=== PATIENT | male | born 1970 | race Caucasian/White ===

== ENCOUNTER 2019-08-23 23:38 | Observation (INO) | payer OTHER, SELFPAY ==
--- NOTE | ~2019-08-23 | XR_ITS ---
EXAMINATION: XR chest 2V DATE: 08/24/2019 00:29 INDICATION: Upper chest pain and shortness of breath TECHNIQUE: PA and lateral views of the chest were obtained. COMPARISON: Chest radiograph and CT dated 04/21/2011 FINDINGS: Unchanged minimal elevation of the left hemidiaphragm. No focal airspace opacities, pulmonary edema, pleural effusion or pneumothorax. The cardiomediastinal silhouette is normal. Mild thoracic spondylos is with chronic mild anterior wedging of a couple lower thoracic vertebral bodies. IMPRESSION: 1. No acute cardiopulmonary disease. Reviewed, dictated and finalized at location A.
[2019-08-23 23:37] VITALS: BP 161/90; PULSE 60; RESP 14; TEMP 37.5; O2SAT 97
[2019-08-23 23:45] VITALS: O2SAT 95
--- NOTE | 2019-08-23 23:47 | ECG_ITS ---
Measurements Intervals [place] Rate: 56 P: 16 MI: 164 QRS: 25 QRSD: 88 T: 35 QT: 404 QTc: 392 Interpretive Statements SINUS BRADYCARDIA BORDERLINE ECG Electronically Signed On 08-24-2019 12:03:22 CDT by Khoa Elaine D.O.
[2019-08-23 23:49] VITALS: PULSE 56; RESP 12; O2SAT 93
[2019-08-24] VITALS (22 sets, daily range): BP systolic 114–159; BP diastolic 57–105; PULSE 47–71; RESP 12–22; TEMP 36.3–36.7; O2SAT 92–98
[2019-08-24 00:44] LABS: Basophils Absolute Auto 0.1 K/mm3 (0.0-0.1); Basophils Percent Auto 0.4 % (0.2-1.2); Eosinophils Absolute Auto 0.1 K/mm3 (0-0.3); Eosinophils Percent Auto 0.7 % (0-4.4); Hematocrit 42.2 % (42.0-52.0); Hemoglobin 14.5 g/dL (14.0-18.0); Immature Granulocyte Absolute 0.04 K/mm3 (0.00-0.031); Immature Granulocyte Percent A 0.4 % (0-0.5); Lymphocytes Absolute Auto 1.99 K/mm3 (0.9-3.2); Lymphocytes Percent Auto 17.5 % (18.3-44.2); Mean Corpuscular HGB Conc 34.4 g/dl (32-36); Mean Corpuscular Hemoglobin 31.2 pg (26-34); Mean Corpuscular Volume 90.8 fl (80-100); Mean Platelet Volume 9.4 fl (7.4-10.4); Monocytes Absolute Auto 0.9 K/mm3 (0.1-0.6); Monocytes Percent Auto 7.7 % (2.6-8.5); Neutrophils Absolute Auto 8.4 K/mm3 (1.3-6.7); Neutrophils Percent Auto 73.3 % (45.5-73.1); Platelet Count Result 257 k/mm3 (150-375); Red Blood Count 4.65 M/mm3 (4.6-6.20); Red Cell Distribution Width 14.4 % (11.5-14.5); White Blood Count 11.4 K/mm3 (4.5-10.0)
[2019-08-24 00:45] LABS: Prothrombin Time 13.2 Seconds (11.1-14.7)
[2019-08-24 00:46] LABS: Partial Thromboplastin Time 27.8 SECONDS (22.3-36.8)
[2019-08-24 01:04] LABS: Blood Urea Nitrogen 17 mg/dL (9-20); Calcium 9.6 mg/dL (8.4-10.2); Carbon Dioxide 26 mmol/L (22-30); Chloride 105 mmol/L (98-107); Estimated CRCL calculation 151 ml/min; Estimated Glomerular Filt Rate > 60; Glucose 104 mg/dL (75-110); Potassium 3.7 mmol/L (3.4-5.0); Sodium 139 mmol/L (137-145)
[2019-08-24 01:16] LABS: Troponin I 0.018 ng/mL (0.000-0.034)
--- NOTE | 2019-08-24 01:32 | ED.CHESTPAIN ---
HPI - Chest Pain General Chief Complaint: Chest Pain Stated Complaint: CP Time Seen by Provider: 08/24/19 00:23 Source: patient Mode of arrival: ambulatory Limitations: no limitations History of Present Illness HPI narrative: This patient is a 49 year old male with history of Hypertension, diabetes who presents for evaluation of misternal chest pressure. Patient states that he had a dental procedure performed yesterday afternoon. He states after he received a lidocaine injection developed dizziness and chest pressure and sensation of adrenaline . He states he continue to have that feeling. His symptoms have not resolved and he noticed that his blood pressure was elevated so he came to ER for evaluation. He denies history of angina. He was given aspirin 325 mg and nitroglycerin by EMS. Her reports his pain improved with nitroglycerin. PAtient also reports history of migraine headaches and he has one now. complaint: chest heaviness Timing of current episode: episodic and constant Prior episodes: No Onset: during rest Pain location: substernal Pain scale (0-10): 6 Quality: heaviness Exacerbating factors: exertion Associated symptoms: dyspnea Treatment prior to arrival: aspirin and nitroglycerin Related Data Home Medications Medication Instructions Recorded Confirmed zolmitriptan 5 mg tablet See Rx Instructions PO .COMPLEX 05/09/19 08/24/19 amoxicillin 875 mg PO Q12H 08/24/19 08/24/19 bupropion HCl [Wellbutrin SR] 100 mg PO Q12H 08/24/19 08/24/19 hydrocodone-acetaminophen 1 - 2 tablet PO Q6H PRN 08/24/19 08/24/19 Allergies Allergy/AdvReac Type Severity Reaction Status Date / Time No Known Allergies Allergy Unknown Verified 08/23/19 23:48 Review of Systems Review of Systems: All systems reviewed & are unremarkable except as noted in HPI and below Cardiovascular: Cardiovascular: Reports chest pain, Denies rapid heart rate and Denies radiating jaw, neck or arm pain Respiratory: Respiratory: Denies cough and Denies dyspnea Gastrointestinal: Gastrointestinal: Denies abdominal pain, Denies nausea and Denies vomiting Neurologic: Reports headache(s) PMFSH Past Medical History Medical History (Updated 08/24/19 @ 08:41 by Bruce Domínguez MD) Anxiety (~2018) Benign essential HTN BMI 40.0-44.9, adult Controlled diabetes mellitus Depression Migraine with aura CASANDRA (obstructive sleep apnea) Surgical History Surgical History (Updated 08/24/19 @ 01:33 by Fay Grant MD) History of elbow surgery Family History Family History (Updated 08/24/19 @ 04:04 by Brenda Sweet RN) Mother Family history of sleep apnea Family history of alcoholism Father Family history of heart disease in male family member before age 55, Onset Age: 50 Cerebrovascular accident Grandparent Family history of lung cancer Sibling Family history of alcoholism Other Family history of gastrointestinal disorder Social History Social History Smoking status: Never smoker Alcohol intake: never Substance use: never Substance use type: does not use Living arrangements: with family Spiritual care concerns: No Exam Narrative: Exam Narrative: GENERAL: Well-appearing, well-nourished, and in no acute distress. HEAD: Normocephalic, atraumatic EYES: PERRLA and EOMI, conjunctiva clear without discharge EARS: TM's clear bilaterally without erythema or dullness NOSE: Nares clear, no rhinorrhea or epistaxis THROAT:Mucous membranes moist, Oropharynx normal without erythema, exudate, peritonsillar swelling or fluctuance NECK: Supple, without lymphadenopathy or mass RESPIRATORY: No respiratory distress, Airway patent, Respirations non-labored, Clear to auscultation without rales, rhonchi or wheeze HEART: Regular rate and rhythm. No murmur heard. Normal peripheral pulses. ABDOMEN: Soft, nontender, nondistended, normal active bowel sounds. No masses. No rebound or guarding, No organomegaly. EXTREMITIES:
[2019-08-24] MEDS: NITROGLYCERIN OINTMENT 1 INCH DOSE TRANSDERM ×2 (02:07→05:54)
[2019-08-24] MEDS: METOCLOPRAMIDE HCL INJ 10 MG/2 ML VIAL IV PUSH (02:08)
[2019-08-24] MEDS: diphenhydrAMINE HCl INJ 50 MG/ML VIAL 25 MG IV PUSH (02:08)
[2019-08-24 03:30] LABS: Troponin I 0.017 ng/mL (0.000-0.034)
--- NOTE | 2019-08-24 05:45 | ECG_ITS ---
Measurements Intervals [place] Rate: 52 P: 12 MO: 151 QRS: 27 QRSD: 93 T: 44 QT: 449 QTc: 418 Interpretive Statements SINUS BRADYCARDIA BORDERLINE ECG Electronically Signed On 08-24-2019 6:51:05 CDT by Khoa Elaine D.O.
[2019-08-24 06:29] LABS: Troponin I < 0.012 ng/mL (0.000-0.034)
--- NOTE | 2019-08-24 08:25 | PC.NURSE ---
DR. WALLS HERE TO SEE PT.
--- NOTE | 2019-08-24 08:35 | PM.IMHP ---
H&P: HPI History of Present Illness Chief complaint: chest pain Narrative: Giovanni Murray is a 49 year old male with h/o anxiety,CASANDRA on CPAP,HTN and DM both improved and came of medicine after had lost weight who presented with chest pain He had root canal procedure around 3:00 pm yesterday and right after injecting lidocaine he had extreme pain in the tooth then became diaphoretic, shaky and nauseated. Later he developed chest tightness. Procedure was aborted and he went home took Abx and hydrocodone but pain never went away and prevented him from going to sleep so he decided to seek medical attention. In ER received Nitro with only mild relive of pain then later had IV medicine that resolved the pain. He feels much better this morning and the pain has resolved EKG shows sinus bradycardia with no ischemic changes. Trops negative X3 Never smoker. Never had prior cardiac history or cardiac work up. Father had AK in his 60s. Review of Systems Review of Systems: All systems reviewed & are unremarkable except as noted in HPI and below Constitutional: Constitutional: Denies fatigue and Denies headache(s) Eyes: Eyes: Denies blurry vision ENT: Reports Normal hearing present and Denies headache(s) Cardiovascular: Cardiovascular: Denies chest pain, Denies diaphoresis, Denies pedal edema, Denies leg edema, Denies lightheadedness, Denies palpitations and Denies dyspnea Respiratory: Respiratory: Denies cough and Denies dyspnea Gastrointestinal: Gastrointestinal: Denies abdominal pain Musculoskeletal: Musculoskeletal: Denies back pain Neurologic: Reports Normal hearing present and Denies headache(s) Psychiatric: Psychiatric: Denies anxiety Endocrine: Endocrine: Denies fatigue and Denies palpitations [facility] Past Medical History Medical History (Updated 08/24/19 @ 08:41 by Bruce Domínguez MD) Anxiety (~2018) Benign essential HTN BMI 40.0-44.9, adult Controlled diabetes mellitus Depression Migraine with aura CASANDRA (obstructive sleep apnea) Surgical History Surgical History (Updated 08/24/19 @ 01:33 by Fay Grant MD) History of elbow surgery Family History Family History (Updated 08/24/19 @ 04:04 by Brenda Sweet RN) Mother Family history of sleep apnea Family history of alcoholism Father Family history of heart disease in male family member before age 55, Onset Age: 50 Cerebrovascular accident Grandparent Family history of lung cancer Sibling Family history of alcoholism Other Family history of gastrointestinal disorder Social History Social History Smoking status: Never smoker Alcohol intake: never Substance use: never Substance use type: does not use Living arrangements: with family Spiritual care concerns: No Meds Home Medications and Allergies Home Medications Medication Instructions Recorded Confirmed Type zolmitriptan 5 mg tablet See Rx Instructions PO .COMPLEX 05/09/19 08/24/19 History escitalopram oxalate 20 mg tablet 30 mg PO DAILY 90 Days #135 tablet 06/06/19 08/24/19 Rx amoxicillin 875 mg PO Q12H 08/24/19 08/24/19 History bupropion HCl [Wellbutrin SR] 100 mg PO Q12H 08/24/19 08/24/19 History hydrocodone-acetaminophen 1 - 2 tablet PO Q6H PRN 08/24/19 08/24/19 History Allergies Allergy/AdvReac Type Severity Reaction Status Date / Time No Known Allergies Allergy Unknown Verified 08/23/19 23:48 Vital Signs Vital Signs - 24 hr 08/23/19 23:37 08/23/19 23:45 08/23/19 23:49 Temperature 37.5 C Pulse Rate 60 56 L Respiratory Rate 14 12 Blood Pressure 161/90 H Pulse Oximetry 97 95 93 08/24/19 00:00 08/24/19 00:01 08/24/19 00:15 Temperature Pulse Rate 55 L 57 L 54 L Respiratory Rate 18 Blood Pressure 159/101 H Pulse Oximetry 95 93 96 08/24/19 00:27 08/24/19 00:30 08/24/19 00:31 Temperature Pulse Rate 55 L 55 L 53 L Respiratory Rate 17 13 Blood Pressure 149/93 H 145/90 H Pulse Oximetry 92 94 95 08/24/19 00:45 07
--- NOTE | 2019-08-24 08:46 | PM.DS ---
DS: Discharge Diagnosis Discharge Diagnosis (1) Chest pain: Code(s): R07.9 - Chest pain, unspecified Status: Acute Assessment and Plan: 49 y/o with CASANDRA, HTN/DM off medicine since lost weight who presented with chest pain and diaphoresis provoked by dental procedure It appears he may have had vasovagal reaction provoked by pain. troponin X3 Negative and EKG shows no ischemic changes He is chest pain free now Will discharge patient and arrange for outpatient stress echocardiogram Discussed plan with patient and he is agreeable with outpatient work up (2) CASANDRA (obstructive sleep apnea): Code(s): G47.33 - Obstructive sleep apnea (adult) (pediatric) Status: Chronic Assessment and Plan: on CPAP (3) Controlled diabetes mellitus: Code(s): E11.9 - Type 2 diabetes mellitus without complications Status: Chronic Assessment and Plan: Diet controlled (4) Benign essential HTN: Code(s): I10 - Essential (primary) hypertension Status: Chronic Assessment and Plan: Off medications for the last year since lost weight DS: Summary Time Spent with Patient Time attestation: Total time spent providing and/or coordinating discharge services: Exam Const: General: no acute distress Eyes: Sclera: sclerae normal Neck: Neck: no JVD Carotids: no bruits Resp: Effort & Inspection: normal respiratory effort Auscultation: clear to auscultation bilaterally Cardio: Rate: regular rate and not tachycardic Rhythm: regular rhythm Heart sounds: no gallops, no murmurs and no rubs Skin: General skin exam: normal color Neuro: Cranial nerves: Yes Normal hearing present Speech: normal speech Extrem: General: normal to inspection and no edema Psych: Affect: normal affect DS: Data Data Completed and Pending Labs on day of discharge: Labs from last 24 hours 08/24/19 08/24/19 08/24/19 05:45 02:51 00:14 WBC RBC Hgb Hct MCV MCH MCHC RDW Plt Count MPV Immature Gran % (Auto) Neut % (Auto) Lymph % (Auto) [place] % (Auto) Eos % (Auto) Baso % (Auto) Lymph # (Auto) [place] # (Auto) Eos # (Auto) Baso # (Auto) Abs Immat Gran (auto) Absolute Neuts (auto) Absolute Nucleated RBC Nucleated RBC % PT INR APTT Sodium 139 Potassium 3.7 Chloride 105 Carbon Dioxide 26 BUN 17 Creatinine 0.70 Estim Creat Clear Calc 151 Estimated GFR > 60 Glucose 104 Calcium 9.6 Troponin I < 0.012 D 0.017 0.018 08/24/19 08/24/19 00:14 00:14 WBC 11.4 H RBC 4.65 Hgb 14.5 Hct 42.2 MCV 90.8 MCH 31.2 MCHC 34.4 RDW 14.4 Plt Count 257 MPV 9.4 Immature Gran % (Auto) 0.4 Neut % (Auto) 73.3 H Lymph % (Auto) 17.5 L [place] % (Auto) 7.7 Eos % (Auto) 0.7 Baso % (Auto) 0.4 Lymph # (Auto) 1.99 [place] # (Auto) 0.9 H Eos # (Auto) 0.1 Baso # (Auto) 0.1 Abs Immat Gran (auto) 0.04 H Absolute Neuts (auto) 8.4 H Absolute Nucleated RBC 0.0 Nucleated RBC % 0.0 PT 13.2 INR 1.0 APTT 27.8 Sodium Potassium Chloride Carbon Dioxide BUN Creatinine Estim Creat Clear Calc Estimated GFR Glucose Calcium Troponin I Discharge Plan Discharge Attending physician on discharge: Bruce Domínguez Discharging Clinician: Bruce Domínguez Anticipated Discharge Date/Time: 08/24/19 08:47 Patient Disposition: Home, Self-Care Activity: as tolerated Diet: as tolerated and heart healthy Patient Instructions: Chest Pain (GEN), Antibiotic Form Stand Alone Forms: General Discharge Information Follow-up/Referrals: Bruce Domínguez MD [Physician] - (You will be called with appointment ) Discharge Medications: Continued zolmitriptan [Zomig] 5 mg tablet See Rx Instructions PO .COMPLEX RF: 0 hydrocodone-acetaminophen 5-325 mg Tablet 1 - 2 tablet PO Q6H PRN (Reason: Migraine Headache)
--- NOTE | 2019-08-24 10:00 | PC.NURSE ---
DR. WALLS PLANS TO DO STRESS TEST ON PATIENT AN OUTPATIENT. PT. DRESSING FOR DISCHARGE HOME. IV SITE DISCONTINUED INTACT, SITE DRESSED. NTG PASTE WIPED OFF L. UPPER ARM. REVIEWED DISCHARGE INSTRUCTIONS AND FOLLOW UP CARE WITH PT. QUESTIONS ANSWERED. VOICED UNDERSTANDING OF ALL.
--- NOTE | 2019-08-24 10:15 | PC.NURSE ---
DISCHARGED HOME, OUT AMBULATORY TO FRONT OF HOSPITAL TO AWAIT [facility]. ALL PERSONAL BELONGINGS AND DISCHARGE INSTRUCTIONS VERIFIED AND IN PT'S POSSESSION. DENIES PAIN AT THIS TIME. VOICES NO C/O.
== END 2019-08-24 10:15 | disposition home or self-care (01) ==
LOC: ANHED 08-24 03:12 → ANHCPC 08-24 03:14
PROVIDERS: Admitting Provider Internal Medicine; Emergency Provider General Practice; PCP Family Medicine; Visit Provider Internal Medicine
DX: R07.9 Chest pain, unspecified (principal); E11.9 Type 2 diabetes mellitus without complications; I10 Essential (primary) hypertension; G47.33 Obstructive sleep apnea (adult) (pediatric); F41.9 Anxiety disorder, unspecified; E66.01 Morbid (severe) obesity due to excess calories; Z68.41 Body mass index [BMI] 40.0-44.9, adult
CPT/HCPCS: 36415; 71046; 80048; 84484; 85025; 85610; 85730; 93005; 96374; 96375; 99285; A9270; G0378; J1200; J2060; J2765

== ENCOUNTER 2019-09-27 02:04 | Outpatient (CLI) | payer OTHER, SELFPAY ==
[2019-09-27 18:53] LABS: SARS-CoV-2 RNA PCR Negative
== END 2019-09-27 02:05 | disposition home or self-care (01) ==
LOC: ANHCOVIDDT 02:05
PROVIDERS: PCP Family Medicine; Visit Provider Specialist
DX: Z01.812 Encounter for preprocedural laboratory examination (principal); Z20.828 Contact with and (suspected) exposure to other viral communicable diseases
CPT/HCPCS: 87635; C9803; U0003

== ENCOUNTER 2019-09-29 05:48 | Day surgery (SDC) | payer OTHER, SELFPAY ==
[2019-09-28 15:17] VITALS: BMI 39.4
[2019-09-29] VITALS (8 sets, daily range): BP systolic 135–142; BP diastolic 74–99; PULSE 54–72; RESP 14–15; TEMP 36.5–36.6; O2SAT 95–98
[2019-09-29 11:03] LABS: Basophils Percent Auto 0.5 % (0.2-1.2); Eosinophils Absolute Auto 0.1 K/mm3 (0-0.3); Eosinophils Percent Auto 1.6 % (0-4.4); Hematocrit 42.2 % (42.0-52.0); Hemoglobin 14.6 g/dL (14.0-18.0); Immature Granulocyte Absolute 0.02 K/mm3 (0.00-0.031); Immature Granulocyte Percent A 0.3 % (0-0.5); Lymphocytes Absolute Auto 1.83 K/mm3 (0.9-3.2); Lymphocytes Percent Auto 23.8 % (18.3-44.2); Mean Corpuscular HGB Conc 34.6 g/dl (32-36); Mean Corpuscular Hemoglobin 31.3 pg (26-34); Mean Corpuscular Volume 90.6 fl (80-100); Monocytes Absolute Auto 0.6 K/mm3 (0.1-0.6); Monocytes Percent Auto 7.9 % (2.6-8.5); Neutrophils Absolute Auto 5.1 K/mm3 (1.3-6.7); Neutrophils Percent Auto 65.9 % (45.5-73.1); Platelet Count Result 213 k/mm3 (150-375); Red Blood Count 4.66 M/mm3 (4.6-6.20); Red Cell Distribution Width 13.3 % (11.5-14.5); White Blood Count 7.7 K/mm3 (4.5-10.0)
[2019-09-29 11:12] LABS: INR 1.1; Prothrombin Time 13.8 Seconds (11.1-14.7)
[2019-09-29 11:16] LABS: Anion Gap 9 mmol/L (8-16); Blood Urea Nitrogen 23 mg/dL (9-20); Calcium 9.3 mg/dL (8.4-10.2); Carbon Dioxide 26 mmol/L (22-30); Chloride 105 mmol/L (98-107); Estimated CRCL calculation 147 ml/min; Estimated Glomerular Filt Rate > 60; Glucose 105 mg/dL (75-110); Sodium 140 mmol/L (137-145)
--- NOTE | 2019-09-29 13:10 | PM.IMHP ---
H&P: HPI History of Present Illness Date/Time: 09/29/19 13:10 49 years old gentleman with history of hypertension, history of dyslipidemia, was seen because of chest pain noted to have exertional type of chest pain, underwent stress test which was abnormal. He will be admitted to the hospital for elective cardiac catheterization for definite diagnosis of coronary artery disease Chief complaint: chest pain, positive stress test Narrative: Giovanni Murray is a 49 year old male [facility] Social History Social History Smoking status: Never smoker Second hand tobacco smoke exposure: No Alcohol intake: never Substance use: never Substance use type: does not use Living arrangements: with family Spiritual care concerns: No Meds Home Medications and Allergies Home Medications Medication Instructions Recorded Confirmed Type zolmitriptan 5 mg tablet See Rx Instructions PO .COMPLEX 05/09/19 09/28/19 History escitalopram oxalate 20 mg tablet 30 mg PO DAILY 90 Days #135 tablet 06/06/19 09/28/19 Rx bupropion HCl [Wellbutrin SR] 100 mg PO Q12H 08/24/19 09/28/19 History omeprazole magnesium 20 mg 20 mg PO DAILY PRN 09/05/19 09/28/19 History tablet,delayed release Allergies Allergy/AdvReac Type Severity Reaction Status Date / Time No Known Allergies Allergy Unknown Verified 09/05/19 14:46 Vital Signs Vital Signs - 24 hr 09/29/19 11:09 Temperature 36.6 C Pulse Rate 58 L Respiratory Rate 14 Blood Pressure 138/87 Pulse Oximetry 98 Exam Narrative: Exam Narrative: Awake alert oriented x3 not in acute distress Neck is supple no obvious JVD, no carotid bruit Chest: Good air entry bilaterally, lungs are clear to auscultation and percussion bilaterally Cardiovascular: Regular rate and rhythm, 2/6 systolic murmur noted left sternal border Abdomen: Soft nontender bowel sounds positive Extremities: No edema has good pulses distally bilaterally H&P: Results Labs Labs: Short CBC 09/29/19 Range/Units 10:53 WBC 7.7 (4.5-10.0) K/mm3 Hgb 14.6 (14.0-18.0) g/dL Hct 42.2 (42.0-52.0) % Plt Count 213 (150-375) k/mm3 [facility] 09/29/19 10:53 Sodium 140 Potassium 4.0 Chloride 105 Carbon Dioxide 26 BUN 23 H Creatinine 0.70 Glucose 105 Calcium 9.3 Assessment and Plan Assessment and plan (1) Chest pain: Qualifiers: Chest pain type: unspecified Qualified Code(s): R07.9 - Chest pain, unspecified Code(s): R07.9 - Chest pain, unspecified Status: Acute Assessment and Plan: He had abnormal stress test. Will plan cardiac catheterization. The procedure was discussed with the patient, risks, benefits, and alternative diagnostic measure was explained, patient agreed to the procedure (2) Controlled diabetes mellitus: Qualifiers: Diabetes mellitus type: type 2 Diabetes mellitus jail insulin use: without jail use Diabetes mellitus complication status: without complication Qualified Code(s): E11.9 - Type 2 diabetes mellitus without complications Code(s): E11.9 - Type 2 diabetes mellitus without complications Status: Chronic
--- NOTE | 2019-09-29 13:12 | WPDMODSED ---
Moderate Sedation Note-Pt Data Patient Data Allergies Allergy/AdvReac Type Severity Reaction Status Date / Time No Known Allergies Allergy Unknown Verified 09/05/19 14:46 Home Medications Medication Instructions Recorded Confirmed Type zolmitriptan 5 mg tablet See Rx Instructions PO .COMPLEX 05/09/19 09/28/19 History escitalopram oxalate 20 mg tablet 30 mg PO DAILY 90 Days #135 tablet 06/06/19 09/28/19 Rx bupropion HCl [Wellbutrin SR] 100 mg PO Q12H 08/24/19 09/28/19 History omeprazole magnesium 20 mg 20 mg PO DAILY PRN 09/05/19 09/28/19 History tablet,delayed release Current Medications: Active Medications Sodium Chloride (Normal Saline Iv) 500 mls @ 100 mls/hr IV CONT .Q5H [facility] Sedation/Anesthesia: No previous sedation/anesthesia problems (including family history). [facility] Social History Social History Smoking status: Never smoker Second hand tobacco smoke exposure: No Alcohol intake: never Substance use: never Substance use type: does not use Living arrangements: with family Spiritual care concerns: No Mod Sed Physical Exam Physical Exam Pre Procedural Exam: Normal: Appearance, Eyes, Ears, Nose, Neck, Throat, Airway, Lungs, Heart Size, Heart Rate, Heart Rhythm, Neuro Exam, Abdomen, Liver, Kidneys, Spleen, Breasts, Genitalia, Extremities and Skin Hours since solid foods: 8 Hours since liquid intake: 8 Internal Medicine - PN: Obj Da Vital Signs Vital Signs: Vital Signs - 24 hr 09/29/19 11:09 Temperature 36.6 C Pulse Rate 58 L Respiratory Rate 14 Blood Pressure 138/87 Pulse Oximetry 98 Meds/Results Medications: Active Medications Generic Name Dose Route Start Last Admin Trade Name Freq PRN Reason Stop Dose Admin Sodium Chloride 500 mls @ 100 mls/hr 09/29/19 06:05 Normal Saline Iv IV CONT .Q5H [facility] Labs CBC & Chem 7: 09/29/19 10:53 09/29/19 10:53 Labs: Laboratory Results - last 24 hr 09/29/19 09/29/19 09/29/19 10:53 10:53 10:53 WBC 7.7 RBC 4.66 Hgb 14.6 Hct 42.2 MCV 90.6 MCH 31.3 MCHC 34.6 RDW 13.3 Plt Count 213 MPV 9.0 Immature Gran % (Auto) 0.3 Neut % (Auto) 65.9 Lymph % (Auto) 23.8 [place] % (Auto) 7.9 Eos % (Auto) 1.6 Baso % (Auto) 0.5 Lymph # (Auto) 1.83 [place] # (Auto) 0.6 Eos # (Auto) 0.1 Baso # (Auto) 0.0 Abs Immat Gran (auto) 0.02 Absolute Neuts (auto) 5.1 Absolute Nucleated RBC 0.0 Nucleated RBC % 0.0 PT 13.8 INR 1.1 Sodium 140 Potassium 4.0 Chloride 105 Carbon Dioxide 26 Anion Gap 9 BUN 23 H Creatinine 0.70 Estim Creat Clear Calc 147 Estimated GFR > 60 Glucose 105 Calcium 9.3 ASA Classification/Sedation ASA Classification/Sedation ASA Class: II Risks: Risks, benefits and alternatives explained and patient/family accepted plan for sedation. Patient re-evaluated immediately prior to sedation.
--- NOTE | 2019-09-29 13:38 | P.PCNCC_ITS ---
Cardiac Cath Procedure Note Date of procedure:: 09/29/19 Performing physician:: Abran Anthony MD Procedure: 1. Left heart catheterization, selective coronary angiogram. 2. Left ventricular angiogram. 3. Conscious sedation. 4. Right common femoral artery angiogram, and Angio-Seal device for arterial hemostasis [employer] Attacher: Dr. Abran Anthony Complications: None. Sedation: Conscious sedation, local anesthesia, using 1 mg of Versed said, 25 mcg of fentanyl, and using 1% lidocaine for local anesthesia. Technique: After informed consent was obtained from patient, was brought to the drop crew laborer, put in the drop crew laborer table, prepped and draped in usual sterile fashion. Five Dominican sheath was inserted into the right common femoral artery, through the sheath 5 Dominican JL4 catheter inserted, advanced to the left coronary artery, left coronary artery angiogram was obtained. The catheter was exchanged over guidewire into a 5 Dominican JR4 catheter, advanced to the right coronary artery, right coronary artery angiogram was obtained. The catheter then was exchanged over guidewire into this 5 Dominican pigtail catheter, advanced to left ventricle, left ventricular angiogram was obtained. The catheter then was pulled, the sheath was pulled applying Angio-Seal device, after the angiogram was done, for arterial hemostasis. Patient tolerated the procedure no complication, taken from the drop crew laborer to his room in stable condition stable vital signs. Hemodynamics: aortic pressure 141/76 . LV pressure 140/6 with LVEDP of 12 mmHg Angiographic findings: Left main: Medium size artery no significant disease or stenosis. Lad seems to be ectatic vessels, with ostial 40% narrowing, however the vessel itself is very ectatic and measuring about 6 mm Left circumflex artery, medium size artery, no significant disease or stenosis. RCA: Dominant vessel, showed no significant disease or stenosis LV: Normal size left ventricle with normal left ventricular systolic function. Summary: Mild coronary artery disease, normal left ventricular systolic function. Recommendation: Maximum medical treatment. Risk factor modification.
--- NOTE | 2019-09-29 16:21 | SUR.PHASEII ---
1545-pt up to the chair. Groin checked before and after rising. Found to be soft and non-tender, no evidence of bleeding or hematoma noted. Strong right pedal pulse noted. Ambulated to restroom. Will continue to monitor.
--- NOTE | 2019-09-29 17:05 | SUR.PHASEII ---
1645-pt given D/C orders and instructions. Questions answered and verbalized understanding. AOx4. Groin soft and non-tender, no evidence of bleeding or hematoma noted. Strong right pedal pulse noted. Taken via wheelchair to waiting vehicle. No distress noted or verbalized at time of departure.
== END 2019-09-29 16:45 | disposition home or self-care (01) ==
PROVIDERS: PCP Family Medicine; Visit Provider Specialist
PROC: 4A023N7 Measurement of Cardiac Sampling and Pressure, Left Heart, Percutaneous Approach (ICD-10-PCS; CPT 93452; principal; 2019-09-29 12:30)
DX: I25.10 Atherosclerotic heart disease of native coronary artery without angina pectoris (principal); R07.89 Other chest pain; R94.39 Abnormal result of other cardiovascular function study; I10 Essential (primary) hypertension; E78.5 Hyperlipidemia, unspecified; E11.9 Type 2 diabetes mellitus without complications; Z79.82 Long term (current) use of aspirin; G47.33 Obstructive sleep apnea (adult) (pediatric); F41.8 Other specified anxiety disorders; E66.9 Obesity, unspecified; Z68.39 Body mass index [BMI] 39.0-39.9, adult
CPT/HCPCS: 36415; 80048; 85025; 85610; 93458; A9270; C1760; C1887; C1894; G0269; J1644; J2250; J3010

== ENCOUNTER 2020-05-23 14:30 | Outpatient (RCR) | payer OTHER, SELFPAY ==
[2020-04-03 12:36] VITALS: BMI 43.7
[2020-04-03 12:38] VITALS: BMI 43.7
== END 2020-06-12 08:03 | disposition home or self-care (01) ==
LOC: ANHDMC 14:30
PROVIDERS: PCP Internal Medicine; Visit Provider Internal Medicine
DX: E11.9 Type 2 diabetes mellitus without complications (principal); Z71.89 Other specified counseling; Z71.3 Dietary counseling and surveillance
CPT/HCPCS: 97802; G0108; G0109

== ENCOUNTER 2020-08-07 15:02 | Outpatient (RCR) | payer OTHER, SELFPAY | END 2020-10-22 12:25 | disposition home or self-care (01) | LOC: ANHDMC 15:02 | PROVIDERS: PCP Internal Medicine; Visit Provider Internal Medicine | DX: E11.9 Type 2 diabetes mellitus without complications (principal); Z71.89 Other specified counseling | CPT/HCPCS: G0108 ==

== ENCOUNTER 2023-01-10 11:00 | Emergency (ER) | payer OTHER, SELFPAY ==
--- NOTE | ~2023-01-10 | CT_ITS ---
EXAMINATION: CT brain wo con DATE: 01/10/2023 15:36 INDICATION: Otitis externa TECHNIQUE: Computed tomography (CT) of the head was performed without and with 100 cc Omnipaque 350 i ntravenous contrast. The dose-length product was 605.33 mGy-cm. Automated exposure control and iterat madeline reconstruction technique were employed. COMPARISON: None FINDINGS: No acute intracranial hemorrhage, infarction, mass or mass effect. Brain parenchymal volume is normal for age. No abnormal contrast enhancement. Paranasal sinuses and mastoids are pneumatized. Midline sagittal images are unremarkable. IMPRESSION: 1. No acute intracranial abnormality. Reviewed, dictated and finalized at location A. MADE TILE ARTIST
--- NOTE | ~2023-01-10 | CT_ITS ---
EXAMINATION: CT sinus w con DATE: 01/10/2023 15:14 INDICATION: Malignant otitis externa. TECHNIQUE: Computed tomography (CT) of the paranasal sinuses was performed without intravenous contra st. The dose-length product was 1286.33 mGy-cm. Automated exposure control and iterative reconstructi on technique were employed. COMPARISON: None FINDINGS: There is no significant mucosal thickening. No air-fluid levels. Leftward nasal septal kari ation. Ostiomeatal units are patent. Mastoids are pneumatized. Small amount of soft tissue in the rig ht external auditory canal, likely cerumen. IMPRESSION: 1. No significant sinus disease. Reviewed, dictated and finalized at location A. IC DESIGNER
[2023-01-10 11:18] VITALS: BP 167/76; PULSE 62; RESP 16; TEMP 36.6; O2SAT 100
--- NOTE | 2023-01-10 12:05 | ED.EAR ---
HPI - Ear Problem General Chief complaint: Ear Stated complaint: Ear infection Time Seen by Provider: 01/10/23 11:59 Source: patient Limitations: no limitations History of Present Illness HPI Narrative: This is a 52 yo who presents with concern for recurrent right ear infection. He denies any acute trauma. He has been to urgent care twice for this matter and been on 2 courses of antibiotics, round 1 was amoxicillin-clavulanate and round 2 was topical neomycin with PO cefdinir which he started on Thursday and completed his 5 day course. He states he saw an ENT a long time ago but not recently. Approximately 1 month ago his entire family was sick with what they thought was a cold. His and one child got pneumonia and he developed the ear ache. No recent fevers. No altered mental status. With each course of antibiotics, he felt that he was improving and then had recurrence of symptoms. He feels that he is about to get a headache and has chronic migraines. He states urgent care told him they saw pus and possible perforation previously. He notes he has had opaque drainage of material. He also has chronic tinnitus but this has not been an issue as of late. Related Data Home Medications Medication Instructions Recorded Confirmed zolmitriptan 5 mg tablet (Zomig) See Rx Instructions PO .COMPLEX 05/09/19 01/18/20 omeprazole magnesium 20 mg 20 mg PO DAILY PRN Acid Reflux 09/05/19 01/18/20 tablet,delayed release (Prilosec OTC) hydrochlorothiazide 25 mg tablet 25 mg PO DAILY 03/06/20 magnesium glycinate 100 mg tablet 100 mg PO DAILY 03/06/20 metformin 500 mg tablet 500 mg PO DAILY 03/06/20 Allergies Allergy/AdvReac Type Severity Reaction Status Date / Time No Known Allergies Allergy Unknown Verified 01/10/23 11:20 [facility] Past Medical History Medical History (Updated 01/11/23 @ 08:56 by Cassandra Linn MD) Anxiety (~2017) Benign essential HTN BMI 40.0-44.9, adult CAD (coronary artery disease) Controlled diabetes mellitus hemoglobin A1c: 10.2(08/2017), improved with lifestyle modifications Depression GERD without esophagitis Migraine with aura CASANDRA (obstructive sleep apnea) PTSD (post-traumatic stress disorder) TBI (traumatic brain injury) (~1992) Testicular pain, left Surgical History Surgical History History of elbow surgery left History of testicular surgery 1992 - removal of cyst Family History Family History Mother Family history of sleep apnea Family history of alcoholism Father Family history of heart disease in male family member before age 55, Onset Age: 50 Cerebrovascular accident Grandparent Family history of lung cancer Sibling Family history of alcoholism Other Family history of gastrointestinal disorder Social History Social History Smoking status: Never smoker Second hand tobacco smoke exposure: No Alcohol intake: never Substance use: never Substance use type: does not use Living arrangements: with family Spiritual care concerns: No Exam Narrative: GENERAL: Well-appearing, well-nourished, and in no acute distress. HEAD: Normocephalic, atraumatic. No preauricular or mastoid tenderness to palpation or swelling. EYES: Patient wearing sunglasses throughout encounter though does remove them and eyes grossly normal without injection or icterus ENT: Nares clear, no rhinorrhea or epistaxis. No tenderness to palpation of sinuses throughout forehead; mild tenderness to palpation through mid face. Left ear normal without pain on manipulation of the pinna; TM easily visualized and normal pearly roa. Right ear externally normal without pain on manipulation of the pinna. No erythema throughout canal. TM on the right well visualized. There does appear to be an effusion but it is along the superior a
--- NOTE | 2023-01-10 12:27 | PC.NURSE ---
ct sinus ordered. pt resting on stretcher. no distress noted.
--- NOTE | 2023-01-10 15:35 | PC.NURSE ---
ct brain ordered.
[2023-01-10 15:43] LABS: Estimated CRCL calculation 118 ml/min; Estimated Glomerular Filt Rate > 60
== END 2023-01-10 16:25 | disposition home or self-care (01) ==
PROVIDERS: Emergency Provider Student in an Organized Health Care Education/Training Program
DX: H66.91 Otitis media, unspecified, right ear (principal); I10 Essential (primary) hypertension; I25.10 Atherosclerotic heart disease of native coronary artery without angina pectoris; E11.9 Type 2 diabetes mellitus without complications; K21.9 Gastro-esophageal reflux disease without esophagitis; G47.33 Obstructive sleep apnea (adult) (pediatric); F41.9 Anxiety disorder, unspecified; F32.A Depression, unspecified; Z87.820 Personal history of traumatic brain injury; Z79.84 Long term (current) use of oral hypoglycemic drugs
CPT/HCPCS: 70450; 70487; 99284; Q9967